=== PATIENT | female | born 1940 | race Caucasian/White ===

== ENCOUNTER 2016-11-13 10:30 | Inpatient (IN) | payer OTHER ==
--- NOTE | 2016-11-13 10:40 | PDOC ---
History of Present Illness - General Chief Complaint: Weakness Stated Complaint: WEAKNESS Time Seen by Provider: 11/13/16 10:37 History Source: Patient Exam Limitations: No Limitations - History of Present Illness Initial Comments: 11/13/16 10:57 CHIEF COMPLAINT: 76-year-old female complains of feeling generally weak since Monday HISTORY OF PRESENT ILLNESS: This is a 76-year-old woman with a history of hypertension, CABG, sarcoid, rheumatoid arthritis, and lymphoma. She is followed by Dr. Dallas as well as multiple specialists at [facility]. Patient was in her usual state of health, living alone at home, doing fine until Monday. She states she feels generally weak. She has no focal weakness. She states she can barely get up from the bed to the bathroom. She had one episode where she wet herself. She denies fever, cough, dysuria, or URI symptoms. She tried to get up this morning and she lost her balance coming down the stairs, hitting her head on the railing. There was no loss of consciousness. She denies headache. She denies chest pain. REVIEW OF SYSTEMS: GENERAL/CONSTITUTIONAL: No fever or chills. Positive generalized weakness. Positive poor by mouth intake for 3 days. HEAD, EYES, EARS, NOSE AND THROAT: No change in vision. No ear pain or discharge. No sore throat. CARDIOVASCULAR: No chest pain or shortness of breath. RESPIRATORY: No cough, wheezing, or hemoptysis. GASTROINTESTINAL: No nausea, vomiting, diarrhea or constipation. No rectal bleeding. GENITOURINARY: No dysuria, frequency, or change in urination. Positive loss of urine when she was unable to get to the bathroom. MUSCULOSKELETAL: No acute joint or muscle swelling or pain. No neck or back pain. SKIN AND BREASTS: No rash or easy bruising. NEUROLOGIC: No headache, vertigo, loss of consciousness, or loss of sensation. Positive head on the railing today. PSYCHIATRIC: No depression or anxiety. ENDOCRINE: Positive increased thirst. No abnormal weight change. HEMATOLOGIC/LYMPHATIC: No anemia, easy bleeding, or history of blood clots. ALLERGIC/IMMUNOLOGIC: No hives or skin allergy. No latex allergy. Past History - Past Medical History Allergies/Adverse Reactions: Allergies Allergy/AdvReac Type Severity Reaction Status Date / Time morphine Allergy Severe hives Verified 11/13/16 10:37 codeine [Codeine] Allergy Mild Verified 11/13/16 10:37 oxycodone HCl [From Percocet] Allergy Mild Vasovagal Verified 11/13/16 10:37 Reaction Home Medications: Ambulatory Orders Aspirin [Aspirin EC] 81 mg PO DAILY 04/22/14 Nifedipine ER [Procardia Xl -] 90 mg PO DAILY 08/01/15 Colchicine [Colcrys] 0.6 mg PO DAILY 08/29/16 Doxazosin Mesylate [Cardura -] 2 mg PO DAILY 08/29/16 Irbesartan 300 mg PO DAILY 08/29/16 Rosuvastatin Calcium [Crestor] 40 mg PO DAILY 08/29/16 Cancer: Yes (colon resection 2001) Cardiac Disorders: Yes (2 stents) GI Disorders: Yes (colon cancer) HTN: Yes Hypercholesterolemia: Yes Liver Disease: Yes (HEPATITIS AFTER BLOOD TRANSFUSION 1971) Thyroid Disease: Yes (PARATHYROID SURGERY 2012) - Surgical History Abdominal Surgery: Yes (GALLBLADDER, COLON CA) Cardiac Surgery: Yes (CABG) Cholecystectomy: Yes Lung Surgery: Yes (LUNG NODULE REMOVAL for sarcoidosis) - Immunization History Immunization Up to Date: Yes - Psycho/Social/Smoking Cessation Hx Anxiety: No Suicidal Ideation: No Smoking Status: No Smoking History: Never smoked Number of Cigarettes Smoked Daily: 0 Hx Alcohol Use: No Drug/Substance Use Hx: No Substance Use Type: None *Physical Exam - Physical Exam Comments: 11/13/16 11:01 GENERAL: The patient is awake, alert, and fully oriented, in no acute distress. She appears generally weak. She has difficulty sitting up in the stretcher, requires assistance to sit up. HEAD: Normal with no signs of trauma. EYES: Pupils equal, round and reactive to light, extraocular movements intact, sclera anicteric, conjunctiva clear. ENT: Ears normal, nares patent, oropharynx clear without exudates. Moist mucous membranes. NECK: Normal range of motion, supple without lymphadenopathy, JVD, or masses. No supraclavicular adenopathy. LUNGS: Breath sounds equal, clear to auscultation bilaterally. No wheezes, and no crackles. HEART: Regular rate and rhythm, normal S1 and S2 without murmur, rub or gallop. ABDOMEN: Soft, nontender, normoactive bowel sounds. No guarding, no rebound. No masses. EXTREMITIES: Normal range of motion, no edema. No clubbing or cyanosis. No cords, erythema, or tenderness. NEUROLOGICAL: Cranial nerves II through XII grossly intact. Normal speech. Too weak to stand up. No focal weakness. Sensation intact. PSYCH: Normal mood, normal affect. SKIN: Warm, Dry, slightly poor turgor, no rashes or lesions noted. Heart Score/ECG Review - ECG Intrepretation Comment:: 11/13/16 11:03 ED Treatment Course - LABORATORY CBC & Chemistry Diagram: 11/13/16 11:00 11/13/16 11:00 Medical Decision Making - Medical Decision Making 11/13/16 11:04 76-year-old female with history of coronary heart disease, lymphoma, and rheumatoid arthritis presents with nonspecific weakness for 3 days without symptoms of infection. Examination shows no focal findings other than mildly poor skin turgor. Patient will have workup for infectious or metabolic causes. She will get IV fluids. EKG and cardiac enzymes to be assessed as well as part of evaluation for generalized weakness, although there is no chest pain or shortness of breath. Further plans pending initial workup. Patient will likely need to be admitted given her generalized weakness, inability to care for herself, and the fact that she lives alone. 11/13/16 12:49 Laboratory Results - last 24 hr 11/13/16 11/13/16 11/13/16 11:00 11:00 11:00 WBC 3.8 L D RBC 4.81 Hgb 13.4 Hct 40.1 MCV 83.4 MCHC 33.3 RDW 13.1 Plt Count 134 D MPV 11.4 H D Neutrophils % 71.7 Lymphocytes % 14.5 D Monocytes % 13.2 H Eosinophils % 0.4 D Basophils % 0.2 INR 1.06 Sodium 137 Potassium 4.1 Chloride 104 Carbon Dioxide 20 L Anion Gap 13 BUN 35 H D Creatinine 1.7 H D Creat Clearance w eGFR 29.14 Random Glucose 98 Calcium 9.4 Magnesium 2.1 Total Bilirubin 0.5 AST 61 H D ALT 62 H D Alkaline Phosphatase 143 H D Creatine Kinase CK-MB (CK-2) Troponin I Total Protein 7.0 Albumin 4.1 Urine Color Urine Appearance Urine pH Ur Specific Tippo Urine Protein Urine Glucose (UA) Urine Ketones Urine Blood Urine Nitrite Urine Bilirubin Urine Urobilinogen Ur Leukocyte Esterase Urine RBC Urine WBC Ur Epithelial Cells Amorphous Urates Urine Bacteria 11/13/16 11/13/16 11/13/16 11:00 11:00 11:20 WBC RBC Hgb Hct MCV MCHC RDW Plt Count MPV Neutrophils % Lymphocytes % Monocytes % Eosinophils % Basophils % INR Sodium Potassium Chloride Carbon Dioxide Anion Gap BUN Creatinine Creat Clearance w eGFR Random Glucose Calcium Magnesium Total Bilirubin AST ALT Alkaline Phosphatase Creatine Kinase 261 H CK-MB (CK-2) 1.6 Troponin I Cancelled 0.03 Total Protein Albumin Urine Color Yellow Urine Appearance Clear Urine pH 5.0 Ur Specific Tippo 1.025 Urine Protein 3+ H D Urine Glucose (UA) Negative Urine Ketones Trace Urine Blood Negative Urine Nitrite Negative Urine Bilirubin 1+ H Urine Urobilinogen 0.2 e.u/dl Ur Leukocyte Esterase Negative Urine RBC 0-2 Urine WBC 2-4 Ur Epithelial Cells Few Amorphous Urates Few Urine Bacteria Few Labs all reviewed. CBC is notable for mild low white blood cell count. Hemoglobin and platelets are normal. Chemistries notable for elevated BUN and creatinine. Patient states she has a history of one kidney being somewhat atrophic. However, the concern is acute dehydration with acute kidney injury. Patient will require admission for IV hydration and repeat serial renal function assessment. Urinalysis is notable for 3+ protein. No infection. Patient will be admitted for rehydration and serial assessments of her renal function. Hospitalist service aware. *DC/Admit/Observation/Transfer Diagnosis at time of Disposition: Dehydration, FRANCO (acute kidney injury) - Discharge Dispostion Condition at time of disposition: Stable Admit: Yes Decision to Admit order Date/Time: 11/13/16 12:03 Patient with generalized weakness, no specific focal symptoms. Labs are notable for dehydration, acute kidney injury, patient will need admission for treatment. - Referrals Referrals: Shakir Dallas MD [Primary Care Provider] -
[2016-11-13] MEDS ORDERED: SODIUM CHLORIDE 1,000 ML IV STA (10:50)
[2016-11-13 11:03] VITALS: BMI 25.7
[2016-11-13 11:21] LABS: BASOPHIL 0.2 % (0-2.0); EOSINOPHIL 0.4 % (0-4.5); MCH 27.8 pg (25.7-33.7); MCHC 33.3 g/dl (32.0-36.0); MEAN CELL VOLUME 83.4 fl (80-96); MEAN PLT VOLUME 11.4 fl (7.5-11.1); NEUTROPHILS 71.7 % (42.8-82.8); PLATELET COUNT 134 K/MM3 (134-434); RDW 13.1 % (11.6-15.6); WHITE BLOOD COUNT 3.8 K/mm3 (4.0-10.0)
[2016-11-13 11:23] LABS: URINE APPEARANCE Clear; URINE BILIRUBIN 1+ (NEGATIVE); URINE BLOOD Negative (NEGATIVE); URINE COLOR YELLOW; URINE GLUCOSE (UA) Negative (NEGATIVE); URINE KETONE Trace (NEGATIVE); URINE LEUK ESTERASE Negative (NEGATIVE); URINE NITRITE Negative (NEGATIVE); URINE PROTEIN 3+ (NEGATIVE); URINE UROBILINOGEN 0.2 E.U/dl (0.2-1.0)
[2016-11-13 11:30] LABS: INR 1.06 (0.82-1.09); PROTHROMBIN TIME (PATIENT) 11.5 SEC (10.2-13.0)
[2016-11-13 11:36] LABS: URINE BACTERIA FEW /hpf (NEGATIVE); URINE RBC 0-2 /hpf (0-3)
[2016-11-13 11:40] LABS: ALBUMIN 4.1 g/dl (3.5-5.0); BILIRUBIN,TOTAL 0.5 mg/dl (0.2-1.0); CALCIUM 9.4 mg/dl (8.4-10.2); CREATININE 1.7 mg/dl (0.6-1.3); MAGNESIUM 2.1 mg/dL (1.8-2.4)
[2016-11-13 11:50] LABS: TROPONIN I (DFP) 0.03 ng/ml (0.03-0.50)
[2016-11-13] MEDS ORDERED: SODIUM CHLORIDE 1,000 ML IV ONE (12:39)
[2016-11-13 12:40] LABS: CK MB 1.6 ng/ml (0.3-4.0)
[2016-11-13] MEDS ORDERED: SODIUM CHLORIDE 1,000 ML IV SCH (14:45)
--- NOTE | 2016-11-13 14:45 | HP ---
CHIEF COMPLAINT: Weakness, "I feel and hit my head" PCP: Dr. Dallas HISTORY OF PRESENT ILLNESS: This is a 76 year old female with PMHx of lymphoma, colon ca s/p resection, sarcoidosis, hep B, OA, abdominal aneurysm, heart disease(bypass sx), htn, hlp, CKD, fatty liver disease, gout who presented to the ED with weakness and lightheadedness since Saturday 11/11. The patient reports she became increasingly more dizzy today and when she went to walk down her stairs she fell and hit her head. She denies any loss of consciousness, but reports she was so dizzy that when she tried to get up she felt like she would "pass out". She denies any headache, chest pain, palpitations, shortness of breath, urinary symptoms, syncope, nausea, vomiting, diarrhea. She is followed by Dr. Bennett (nephrology) and Dr. Allison Reeves (cardiology) at [facility]. She is scheduled for an outpatient ECHO next week ER course was notable for: (1) Head CT negative for acute intracranial process (2) Chest X-ray with no acute pathology (3) Cr 1.7 Recent Travel: No Social History: Smoking: No, quit 17 years ago Alcohol: No Drugs: No Allergies morphine Allergy (Severe, Verified 11/13/16 10:37) hives codeine [Codeine] Allergy (Mild, Verified 11/13/16 10:37) oxycodone HCl [From Percocet] Allergy (Mild, Verified 11/13/16 10:37) Vasovagal Reaction HOME MEDICATIONS: Home Medications Medication Instructions Recorded Aspirin [Aspirin EC] 81 mg PO DAILY 04/22/14 Nifedipine ER [Procardia Xl -] 90 mg PO DAILY 08/01/15 Colchicine [Colcrys] 0.6 mg PO DAILY 08/29/16 Doxazosin Mesylate [Cardura -] 2 mg PO DAILY 08/29/16 Irbesartan 300 mg PO DAILY 08/29/16 Rosuvastatin Calcium [Crestor] 40 mg PO DAILY 08/29/16 REVIEW OF SYSTEMS CONSTITUTIONAL: Generalized weakness since Saturday 11/11. Absent: fever, chills, diaphoresis, malaise, loss of appetite, weight change HEENT: Absent: rhinorrhea, nasal congestion, throat pain, throat swelling, difficulty swallowing, mouth swelling, ear pain, eye pain, visual changes CARDIOVASCULAR: Lightheadedness since 2/3, s/p fall today while hitting head 2/ 2 lightheadedness. Absent: chest pain, syncope, palpitations, irregular heart rate, peripheral edema RESPIRATORY: Cough x1 week. Absent: shortness of breath, dyspnea with exertion, orthopnea, wheezing, stridor, hemoptysis GASTROINTESTINAL:Absent: abdominal pain, abdominal distension, nausea, vomiting , diarrhea, constipation, melena, hematochezia GENITOURINARY: Absent: dysuria, frequency, urgency, hesitancy, hematuria, flank pain, genital pain MUSCULOSKELETAL: Absent: myalgia, arthralgia, joint swelling, back pain, neck pain SKIN: Absent: rash, itching, pallor HEMATOLOGIC/IMMUNOLOGIC: Absent: easy bleeding, easy bruising, lymphadenopathy, frequent infections ENDOCRINE:Absent: unexplained weight gain, unexplained weight loss, heat intolerance, cold intolerance NEUROLOGIC: Absent: headache, focal weakness or paresthesias, seizure, mental status changes, bladder or bowel incontinence PSYCHIATRIC: Absent: anxiety, depression, suicidal or homicidal ideation, hallucinations. PHYSICAL EXAMINATION GENERAL: Awake, alert, and fully oriented, in no acute distress. HEAD: Normal with no signs of trauma. EYES: Pupils equal, round and reactive to light, extraocular movements intact, sclera anicteric, conjunctiva clear. No lid lag. EARS, NOSE, THROAT: Ears normal, nares patent, oropharynx clear without exudates. Moist mucous membranes. NECK: Normal range of motion, supple without lymphadenopathy, JVD, or masses. LUNGS: Breath sounds equal, clear to auscultation bilaterally. No wheezes, and no crackles. No accessory muscle use. HEART: Regular rate and rhythm, normal S1 and S2, +murmur ABDOMEN: Soft, nontender, not distended, normoactive bowel sounds, no guarding, no rebound, no masses. No hepatomegaly or splenomegaly. MUSCULOSKELETAL: Normal range of motion at all joints. No bony deformities or tenderness. No CVA tenderness. UPPER EXTREMITIES: 2+ pulses, warm, well-perfused. No cyanosis. No clubbing. Cap refill <2 seconds. No peripheral edema. LOWER EXTREMITIES: 2+ pulses, warm, well-perfused. No calf tenderness. No peripheral edema. NEUROLOGICAL: Cranial nerves II-XII intact. Normal speech. Normal gait. PSYCHIATRIC: Cooperative. Good eye contact. Appropriate mood and affect. SKIN: Warm, dry, normal turgor, no rashes or lesions noted. CBCD WBC 3.8 K/mm3 (4.0-10.0) L D 11/13/16 11:00 RBC 4.81 M/mm3 (3.60-5.2) 11/13/16 11:00 Hgb 13.4 GM/dl (10.7-15.3) 11/13/16 11:00 Hct 40.1 % (32.4-45.2) 11/13/16 11:00 MCV 83.4 fl (80-96) 11/13/16 11:00 MCHC 33.3 g/dl (32.0-36.0) 11/13/16 11:00 RDW 13.1 % (11.6-15.6) 11/13/16 11:00 Plt Count 134 K/MM3 (134-434) D 11/13/16 11:00 MPV 11.4 fl (7.5-11.1) H D 11/13/16 11:00 CMP Sodium 137 mmol/L (136-145) 11/13/16 11:00 Potassium 4.1 mmol/L (3.5-5.1) 11/13/16 11:00 Chloride 104 mmol/L (98-107) 11/13/16 11:00 Carbon Dioxide 20 mmol/L (22-28) L 11/13/16 11:00 Anion Gap 13 (8-16) 11/13/16 11:00 BUN 35 mg/dl (7-18) H D 11/13/16 11:00 Creatinine 1.7 mg/dl (0.6-1.3) H D 11/13/16 11:00 Creat Clearance w eGFR 29.14 (>60) 11/13/16 11:00 Random Glucose 98 mg/dl (74-106) 11/13/16 11:00 Calcium 9.4 mg/dl (8.4-10.2) 11/13/16 11:00 Total Bilirubin 0.5 mg/dl (0.2-1.0) 11/13/16 11:00 AST 61 U/L (10-42) H D 11/13/16 11:00 ALT 62 U/L (10-40) H D 11/13/16 11:00 Alkaline Phosphatase 143 U/L (32-92) H D 11/13/16 11:00 Total Protein 7.0 g/dl (6.4-8.3) 11/13/16 11:00 Albumin 4.1 g/dl (3.5-5.0) 11/13/16 11:00 CARDIAC ENZYMES Creatine Kinase 261 IU/L (26-140) H 11/13/16 11:00 Troponin I 0.03 ng/ml (0.03-0.50) 11/13/16 11:00 Assessment: This is a 76 year old female with PMHx of lymphoma, colon ca s/p resection, sarcoidosis, hep B, OA, abdominal aneurysm, heart disease(bypass sx) , htn, hlp, CKD, fatty liver disease, gout who presented to the ED with weakness and lightheadedness since Saturday 11/11. Plan: 1) Cardiology: Lightheadedness, s/p fall while hitting head today - Head CT with no acute pathology, patient on ASA at home, will repeat head CT 12 hours after first - R/o ACS, trop x1 negative - Continuous cardiac monitoring - F/u ECHO HTN - Continue Nifedipine - Hold ARB 2/2 FRANCO (baseline Cr unknown) HLD - Continue Crestor 2) : RFANCO on CKD? - Patient reports database modeler is Dr. Bennett at [facility] (has appointment to go tomorrow) - Baseline Cr unknown, she reports one of her kidneys is not working - Patient appears dry, continue IVF and recheck Cr in AM 3) GI: Elevated AST/ALT, alk phos, hx of hep B, fatty liver disease - Trend liver enzymes, if trends up, consider hepatitis panel and liver ultrasound 4) MSK: Gout - Will hold colchicine given renal and mild hepatic impairment 5) Oncology: Lymphoma, colon cancer - Stable 6) F/E/N: - Monitor electrolytes - Sodium controlled diet 7) Prophylaxis: - Hold all chemical anticoagulation until second head CT results - SCDs bilaterally 8) Dispo: - Requires continued inpatient care CODE STATUS: FULL CODE Visit type - Emergency Visit Emergency Visit: Yes ED Registration Date: 11/13/16 Care time: The patient presented to the Emergency Department on the above date and was hospitalized for further evaluation of their emergent condition. - New Patient This patient is new to me today: Yes Date on this admission: 11/13/16 - Critical Care Critical Care patient: No
[2016-11-13 17:41] LABS: CPK(DFH) 257 IU/L (26-140)
[2016-11-13 17:53] LABS: TROPONIN I (DFP) < 0.03 ng/ml (0.03-0.50)
[2016-11-13 18:03] LABS: CK MB 2.5 ng/ml (0.3-4.0)
[2016-11-13] MEDS ORDERED: amLODIPine BESYLATE 10 MG TABLET (FP) PO ONE (21:21)
--- NOTE | 2016-11-13 23:44 | EKG ---
Test Reason : Blood Pressure : / mmHG Vent. Rate : 052 BPM Atrial Rate : 052 BPM P-R Int : 158 ms QRS Dur : 078 ms QT Int : 492 ms P-R-T Axes : -07 006 020 degrees QTc Int : 457 ms SINUS BRADYCARDIA LEFT VENTRICULAR HYPERTROPHY WITH REPOLARIZATION ABNORMALITY T-WAVE INVERSION IN ANTERIOR LEADS ABNORMAL ECG WHEN COMPARED WITH ECG OF 30-DEC-2001 08:58, NONSPECIFIC T WAVE ABNORMALITY, IMPROVED IN INFERIOR LEADS T WAVE INVERSION LESS EVIDENT IN ANTEROLATERAL LEADS Confirmed by REGINA STANFORD, VANNA (2016) on 11/13/2016 11:43:56 PM Referred By: EAGLE ASHER Confirmed By:VANNA TAPIA MD
[2016-11-13 23:51] LABS: CK MB 3.7 ng/ml (0.3-4.0); TROPONIN I (DFP) 0.03 ng/ml (0.03-0.50)
[2016-11-14] MEDS ORDERED: DOXAZOSIN MESYLATE 2 MG TABLET (FP) PO SCH (10:00)
[2016-11-14] MEDS ORDERED: NIFEdipine E.R. 90 MG TABLET (FP) PO SCH (10:00)
[2016-11-14] MEDS ORDERED: ROSUVASTATIN CA 40 MG TABLET PO SCH (10:00)
[2016-11-14] MEDS ORDERED: COLCHICINE 0.6 MG TABLET (FP) PO SCH (10:00)
[2016-11-14] MEDS ORDERED: ASPIRIN COATED 81 MG TABLET.EC PO SCH (10:00)
[2016-11-14 10:07] LABS: MCH 28.2 pg (25.7-33.7); MCHC 33.5 g/dl (32.0-36.0); MEAN CELL VOLUME 84.1 fl (80-96); MEAN PLT VOLUME 11.1 fl (7.5-11.1); PLATELET COUNT 107 K/MM3 (134-434); RDW 12.9 % (11.6-15.6); WHITE BLOOD COUNT 2.8 K/mm3 (4.0-10.0)
[2016-11-14 10:13] LABS: ALBUMIN 3.5 g/dl (3.5-5.0); BILIRUBIN,TOTAL 0.6 mg/dl (0.2-1.0); CALCIUM 8.7 mg/dl (8.4-10.2); TOT PROT 5.8 g/dl (6.4-8.3)
--- NOTE | 2016-11-14 13:33 | DS ---
Physical Exam: SUBJECTIVE: Patient seen and examinedpatient reports feeling well denies any chest pain or shortness of breath once to go home OBJECTIVE: patient is a 76 year old female with PMHx of lymphoma, colon ca s/p resection, sarcoidosis, hep B, OA, abdominal aneurysm, heart disease(bypass sx) , htn, hlp, CKD, fatty liver disease, gout who presented to the ED with weakness and lightheadedness since Saturday 11/11. The patient reports she became increasingly more dizzy today and when she went to walk down her stairs she fell and hit her head. She denies any loss of consciousness, but reports she was so dizzy that when she tried to get up she felt like she would "pass out". She denies any headache, chest pain, palpitations, shortness of breath, urinary symptoms, syncope, nausea, vomiting, diarrhea. She is followed by Dr. Bennett (nephrology) and Dr. Allison Reeves (cardiology) at [facility]. She is scheduled for an outpatient ECHO next week ER course was notable for: (1) Head CT negative for acute intracranial process (2) Chest X-ray with no acute pathology (3) Cr 1.7 Vital Signs Period Temp Pulse Resp BP Sys/Haney Pulse Ox Last 24 Hr 98.0 F-99.2 F 61-87 16-20 153-196/47-58 96-100 PHYSICAL EXAM GENERAL: The patient is awake, alert, and fully oriented, in no acute distress. HEAD: Normal with no signs of trauma. EYES: PERRL, extraocular movements intact, sclera anicteric, conjunctiva clear. ENT: Ears normal, nares patent, oropharynx clear without exudates, moist mucous membranes. NECK: Trachea midline, full range of motion, supple. LUNGS: Breath sounds equal, clear to auscultation bilaterally, no wheezes, no crackles, no accessory muscle use. HEART: Regular rate and rhythm, S1, S2, 2/6 without murmur, rub or gallop. ABDOMEN: Soft, nontender, nondistended, normoactive bowel sounds, no guarding, no rebound, no hepatosplenomegaly, no masses. EXTREMITIES: 2+ pulses, warm, well-perfused, no edema. NEUROLOGICAL: Cranial nerves II through XII grossly intact. Normal speech, gait not observed. PSYCH: Normal mood, normal affect. SKIN: Warm, dry, normal turgor, no rashes or lesions noted. LABS Laboratory Results - last 24 hr 11/13/16 11/13/16 11/14/16 17:00 22:58 08:26 WBC 2.8 L RBC 4.11 Hgb 11.6 D Hct 34.6 MCV 84.1 MCHC 33.5 RDW 12.9 Plt Count 107 L D MPV 11.1 Sodium Potassium Chloride Carbon Dioxide Anion Gap BUN Creatinine Creat Clearance w eGFR Random Glucose Calcium Total Bilirubin AST ALT Alkaline Phosphatase Creatine Kinase 257 H 350 H D CK-MB (CK-2) 2.5 3.7 Troponin I < 0.03 L 0.03 Total Protein Albumin 11/14/16 08:26 WBC RBC Hgb Hct MCV MCHC RDW Plt Count MPV Sodium 139 Potassium 3.6 Chloride 107 Carbon Dioxide 22 Anion Gap 10 BUN 23 H D Creatinine 1.0 D Creat Clearance w eGFR 53.76 Random Glucose 93 Calcium 8.7 Total Bilirubin 0.6 AST 50 H ALT 53 H Alkaline Phosphatase 117 H Creatine Kinase CK-MB (CK-2) Troponin I Total Protein 5.8 L Albumin 3.5 imaging Echo (11/14/16): LVEF 65-70%, grade 1 diastolic dysfunction mild mild MR and mild TR Head CT with no acute pathology x2 HOSPITAL COURSE: patient was admitted for syncopal episodes in observation, troponin 3 WNL she was placed on 24-hour cardiac monitoring no dysrhythmias noted. Echocardiogram noted head CT negative. Nifedeine was held due to FRANCO, patient remained normotensive throughout hospitalization. Patient was noted to have acute on chronic kidney disease Patient reports sheet metal installer is Dr. Bennett at [facility] (has appointment to go tomorrow). creatinine did trend downward to 1.0 after gentle IV hydration liver enzymes noted to be elevated upon arrival LFTs did trend downward. Patient has a past medical history of hepatitis B and fatty liver disease. Colchine held due to mild renal and hepatic impairment. patient has a past medical history of lymphoma and colon cancer, remained stable at this time Date of Admission:11/13/16 Date of Discharge: 11/14/16 Minutes to complete discharge: 45 Discharge Summary Reason For Visit: DEHYDRATION-FRANCO Current Active Problems FRANCO (acute kidney injury) (Acute) Dehydration (Acute) Condition: Improved - Instructions Diet, Activity, Other Instructions: resume regular low sodium diet please keep follow-up appointment with your sheet metal installer at [facility] Please follow-up with your toolmaker helper at [facility] a copy of the echocardiogram is enclosed Return to the emergency department immediately with ANY new, persistent or worsening symptoms. You MUST call and follow up with your doctor tomorrow. Please make sure your doctor reviews the results of your hospital stay. Referrals: Shakir Dallas MD [Primary Care Provider] - Disposition: HOME - Home Medications Comprehensive Discharge Medication List: Ambulatory Orders Aspirin [Aspirin EC] 81 mg PO DAILY 04/22/14 Nifedipine ER [Procardia Xl -] 90 mg PO DAILY 08/01/15 Colchicine [Colcrys] 0.6 mg PO DAILY 08/29/16 Doxazosin Mesylate [Cardura -] 2 mg PO DAILY 08/29/16 Irbesartan 300 mg PO DAILY 08/29/16 Rosuvastatin Calcium [Crestor] 40 mg PO DAILY 08/29/16 This patient is new to me today: No Emergency Visit: Yes ED Registration Date: 11/13/16 Care time: The patient presented to the Emergency Department on the above date and was hospitalized for further evaluation of their emergent condition. Critical Care patient: No - Discharge Referral Referred to [facility] No
[2016-11-14 14:40] VITALS: BP 132/48; PULSE 68; TEMP 98.6
== END 2016-11-14 15:15 | disposition home or self-care (01) | DRG 684 ==
LOC: FER 10:30 → FM/S 14:13
PROVIDERS: ADMIT Internal Medicine; ATTEND Nurse Practitioner Family
DX: N17.9 Acute kidney failure, unspecified (principal); I10 Essential (primary) hypertension; M06.80 Other specified rheumatoid arthritis, unspecified site; D86.89 Sarcoidosis of other sites; E86.0 Dehydration; I71.4 Abdominal aortic aneurysm, without rupture; M10.9 Gout, unspecified; E78.5 Hyperlipidemia, unspecified; K76.0 Fatty (change of) liver, not elsewhere classified; I12.9 Hypertensive chronic kidney disease with stage 1 through stage 4 chronic kidney disease, or unspecified chronic kidney disease; N18.9 Chronic kidney disease, unspecified; Z85.038 Personal history of other malignant neoplasm of large intestine; Z85.72 Personal history of non-Hodgkin lymphomas; Z95.1 Presence of aortocoronary bypass graft; Z86.19 Personal history of other infectious and parasitic diseases
CPT/HCPCS: 36415; 70450-TC; 71010-TC; 80053; 81003; 81015; 82550; 82553; 83735; 84484; 85025; 85027; 85610; 93005; 93306-TC; 97116-GP; 97161-GP; 99285-25

== ENCOUNTER 2017-03-15 12:12 | Emergency (ER) | payer OTHER ==
[2017-03-15 12:29] VITALS: BP 164/61; PULSE 68; TEMP 97.8; BMI 25.7
[2017-03-15 13:09] LABS: EOSINOPHIL 2.4 % (0-4.5); MCH 29.4 pg (25.7-33.7); MCHC 33.9 g/dl (32.0-36.0); MEAN CELL VOLUME 86.7 fl (80-96); MEAN PLT VOLUME 10.7 fl (7.5-11.1); NEUTROPHILS 71.2 % (42.8-82.8); PLATELET COUNT 173 K/MM3 (134-434); RDW 12.7 % (11.6-15.6); WHITE BLOOD COUNT 4.7 K/mm3 (4.0-10.8)
--- NOTE | 2017-03-15 13:15 | PDOC ---
History of Present Illness - General Chief Complaint: Psychiatric Stated Complaint: anxiety,sob Time Seen by Provider: 03/15/17 12:16 - History of Present Illness Initial Comments: 03/15/17 13:32 Chief complaint: Fatigue History of present illness: Patient states that yesterday she felt excessively fatigued, was unable to do her usual exercise. She is concerned about her heart. Review of systems: No chest pain, shortness of breath, abdominal pain, nausea, vomiting, diarrhea, diaphoresis, lightheadedness or dizziness, visual or focal neurologic symptoms, unsteadiness of gait. 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 No residual from her stroke. Social history: Former smoker, no recent uses tobacco alcohol or nonprescription drugs. Lives alone, admits anxiety, cares for self, fully ambulatory Family history: Significant for coronary artery disease. Physical exam: Alert and oriented 3, well-developed well-nourished, no acute distress, cheerful and cooperative Afebrile, vital signs normal HEENT clear Neck supple without bruit mass or nodes Chest clear CV regular without murmur rub or gallop Abdomen benign Neurological intact Extremities no CCE Skin clear, no rash, adequate turgor and wet mucous membranes Impression: Nonspecific constitutional symptoms, rule out occult coronary ischemia or MN, possible anxiety Plan: EKG and enzymes, further evaluation depending on results. Past History - Past Medical History Allergies/Adverse Reactions: Allergies Allergy/AdvReac Type Severity Reaction Status Date / Time morphine Allergy Severe hives Verified 03/15/17 12:14 codeine [Codeine] Allergy Mild Verified 03/15/17 12:14 oxycodone HCl [From Percocet] Allergy Mild Vasovagal Verified 03/15/17 12:14 Reaction Home Medications: Ambulatory Orders Aspirin [Aspirin EC] 81 mg PO DAILY 04/22/14 Nifedipine ER [Procardia XL -] 90 mg PO DAILY 08/01/15 Colchicine [Colcrys] 0.6 mg PO DAILY 08/29/16 Doxazosin Mesylate [Cardura -] 2 mg PO DAILY 08/29/16 Irbesartan 300 mg PO DAILY tablet 12/06/16 Rosuvastatin [Crestor -] 40 mg PO DAILY tablet 12/06/16 Diazepam [Valium] 5 mg PO PRN PRN 03/15/17 Cancer: Yes (colon resection 2001) Cardiac Disorders: Yes (2 stents) GI Disorders: Yes (colon cancer) HTN: Yes Hypercholesterolemia: Yes Liver Disease: Yes (HEPATITIS AFTER BLOOD TRANSFUSION 1971) Thyroid Disease: Yes (PARATHYROID SURGERY 2012) - Surgical History Abdominal Surgery: Yes (GALLBLADDER, COLON CA) Cardiac Surgery: Yes (CABG) Cholecystectomy: Yes Lung Surgery: Yes (LUNG NODULE REMOVAL for sarcoidosis) - Immunization History Immunization Up to Date: Yes - Psycho/Social/Smoking Cessation Hx Anxiety: Yes Suicidal Ideation: No Smoking Status: No Smoking History: Never smoked Have you smoked in the past 12 months: No Number of Cigarettes Smoked Daily: 0 Information on smoking cessation initiated: No Hx Alcohol Use: No Drug/Substance Use Hx: No Substance Use Type: None *Physical Exam - Vital Signs Last Vital Signs Temp Pulse Resp BP Pulse Ox 97.8 F 68 20 164/61 100 03/15/17 12:13 03/15/17 12:13 03/15/17 12:13 03/15/17 12:13 03/15/17 12:13 ED Treatment Course - LABORATORY CBC & Chemistry Diagram: 03/15/17 12:47 03/15/17 12:47 Medical Decision Making - Medical Decision Making 03/15/17 16:33 EKG reviewed and shows normal sinus rhythm with T-wave inversions in lead 3 and V4 through V6. CK and troponin are negative. Remainder of labs without significant abnormalities Patient's shucker Dr. Reeves was contacted by phone. She has reviewed the old record and notes that similar EKG changes have occurred in the past, they are intermittent, and they have not signify any cardiac disease. In addition, the patient had a normal cardiac catheterization less than 2 years ago. She recommends discharge and follow-up in her office tomorrow at 3:30 PM. This seems reasonable, based on the patient's vague symptoms, her hemodynamic stability, and her lack of symptoms at. She states that she feels considerably better than yesterday, when she felt weak. Discharge with specific instructions that if symptoms worsen or she develops any cardiac symptoms, especially chest pain, shortness of breath, abdominal pain , nausea, diaphoresis, lightheadedness, dizziness, she should call 911 and return to the emergency room immediately. She understands and agrees and is discharged without pain or other discomfort, fully ambulatory and in no distress , to follow-up as directed. *DC/Admit/Observation/Transfer Diagnosis at time of Disposition: Weakness - Discharge Dispostion Disposition: HOME Condition at time of disposition: Stable Admit: No - Patient Instructions Additional Instructions: Your shucker recommends discharge and follow-up with her tomorrow. She has seen similar intermittent changes in her cardiogram in the past, and your recent cardiac catheterization was clear. This seems to indicate that it is probably not an urgent heart problem However, if he develop any further symptoms between now and your visit to your doctor tomorrow, especially related to the chest, and including chest pain, shortness of breath, nausea, perspiring, lightheadedness, dizziness, or increased weakness, he should call 911 immediately or go to the nearest emergency room. Otherwise see her doctor at 3:30 tomorrow Her to take all your medications as directed on schedule, especially your aspirin.
[2017-03-15 13:18] LABS: ALK PHOS 139 U/L (32-92); ANION GAP 8 (8-16); BILIRUBIN,TOTAL 0.4 mg/dl (0.2-1.0); CALCIUM 9.8 mg/dl (8.4-10.2); CO2 21 mmol/L (22-28); CPK(DFH) 134 IU/L (26-140); CREATININE 1.1 mg/dl (0.6-1.3); GLUCOSE,RANDOM 121 mg/dl (74-106); SGOT/AST 28 U/L (10-42); SGPT/ALT 32 U/L (10-40); TOT PROT 6.5 g/dl (6.4-8.3)
[2017-03-15] MEDS ORDERED: ASPIRIN 81 MG CHEWABLE TABLETS PO ONE (13:42)
[2017-03-15 14:05] LABS: TROPONIN I (DFP) < 0.03 ng/ml (0.03-0.50)
[2017-03-15] MEDS ORDERED: ASPIRIN 81 MG CHEWABLE TABLETS ONE (14:11)
--- NOTE | 2017-03-15 14:25 | EKG ---
Test Reason : Blood Pressure : / mmHG Vent. Rate : 061 BPM Atrial Rate : 061 BPM P-R Int : 158 ms QRS Dur : 080 ms QT Int : 434 ms P-R-T Axes : 064 021 -01 degrees QTc Int : 436 ms SINUS RHYTHM LEFT VENTRICULAR HYPERTROPHY NONSPECIFIC T WAVE ABNORMALITY ABNORMAL ECG WHEN COMPARED WITH ECG OF 13-NOV-2016 11:10, T wave abnormality now present in aVF T wave abnormalities now present in V4-6 Confirmed by PHILLY LÓPEZ MD ([id number]) on 03/15/2017 2:25:06 PM Referred By: ANGY SMITH Confirmed By:PHILLY LÓPEZ MD
== END 2017-03-15 15:42 | disposition home or self-care (01) ==
LOC: FER 12:12
DX: R53.1 Weakness (principal); E78.00 Pure hypercholesterolemia, unspecified; Z85.038 Personal history of other malignant neoplasm of large intestine; Z95.5 Presence of coronary angioplasty implant and graft; Z95.1 Presence of aortocoronary bypass graft
CPT/HCPCS: 36415; 80053; 82550; 84484; 85025; 93005; 99283-25

== ENCOUNTER 2018-03-10 15:50 | Emergency (ER) | payer OTHER ==
--- NOTE | 2018-03-10 16:05 | PDOC ---
History of Present Illness - General History Source: Patient Exam Limitations: No Limitations - History of Present Illness Initial Comments: 03/10/18 16:26 The patient is a 77 year old female, with a significant PMH of hypertension, hypercholesterolemia, hepatitis, thyroid disease, colon ca, cardiac stents, CABG , who presents to the emergency department with right elbow bruising. The patient reports that she noticed her right elbow bruising earlier today. The patient reports that she was concerned for a tick bite. The patient denies any known injury. She also denies any pain, numbness, tingling or weakness. The patient denies any fever, chills, nausea, vomit, diarrhea and constipation. She denies any chest pain, shortness of breath, headache, dizziness or urinary symptoms. The patient denies any other complaints. Allergies: Morphine, Codeine, oxycodone HCl Past surgical history: Gallbladder removal, colon ca resection, CABG, cholecystectomy, lung nodule removal Social history: None reported PCP: Dakota Rangel <Reagan Kimbrough - Last Filed: 03/10/18 16:26> <Yvette Clements - Last Filed: 03/11/18 07:45> - General Chief Complaint: Injury Stated Complaint: RIGHT ELBOW BRUISE Time Seen by Provider: 03/10/18 16:05 Past History <Reagan Kimbrough - Last Filed: 03/10/18 16:26> - Past Medical History Cancer: Yes (colon resection 2001) Cardiac Disorders: Yes (2 stents) GI Disorders: Yes (colon cancer) HTN: Yes Hypercholesterolemia: Yes Liver Disease: Yes (HEPATITIS AFTER BLOOD TRANSFUSION 1971) Thyroid Disease: Yes (PARATHYROID SURGERY 2012) - Surgical History Abdominal Surgery: Yes (GALLBLADDER, COLON CA) Cardiac Surgery: Yes (CABG) Cholecystectomy: Yes Lung Surgery: Yes (LUNG NODULE REMOVAL for sarcoidosis) - Immunization History Immunization Up to Date: Yes - Suicide/Smoking/Psychosocial Hx Smoking Status: No Smoking History: Never smoked Have you smoked in the past 12 months: No Number of Cigarettes Smoked Daily: 0 Hx Alcohol Use: No Drug/Substance Use Hx: No Substance Use Type: None <Yvette Clements - Last Filed: 03/11/18 07:45> - Past Medical History Allergies/Adverse Reactions: Allergies Allergy/AdvReac Type Severity Reaction Status Date / Time morphine Allergy Severe hives Verified 03/10/18 16:12 codeine [Codeine] Allergy Mild Verified 03/10/18 16:12 oxycodone HCl [From Percocet] Allergy Mild Vasovagal Verified 03/10/18 16:12 Reaction Home Medications: Ambulatory Orders Aspirin [Aspirin EC] 81 mg PO DAILY 04/22/14 Nifedipine ER [Procardia XL -] 90 mg PO DAILY 08/01/15 Colchicine [Colcrys] 0.6 mg PO DAILY 08/29/16 Doxazosin Mesylate [Cardura -] 2 mg PO HS 08/29/16 Irbesartan 300 mg PO DAILY tablet 12/06/16 Rosuvastatin [Crestor -] 40 mg PO HS tablet 12/06/16 Diazepam [Valium] 5 mg PO PRN PRN 03/15/17 Calcium Carbonate/Vitamin D3 [Calcium 600 + Vit D Tablet] 1 each PO BID Lutein 40 mg PO DAILY 03/10/18 Jackson-3 Acid Ethyl Esters [Lovaza -] 2,000 mg PO BID 03/10/18 Ubidecarenone [Co Q-10] 200 mg PO DAILY 03/10/18 Review of Systems - Review of Systems Able to Perform ROS?: Yes Comments:: 03/10/18 16:26 GENERAL/CONSTITUTIONAL: No fever or chills. No weakness. HEAD, EYES, EARS, NOSE AND THROAT: No change in vision. No ear pain or discharge. No sore throat. CARDIOVASCULAR: No chest pain or shortness of breath. RESPIRATORY: No cough, wheezing, or hemoptysis. GASTROINTESTINAL: No nausea, vomiting, diarrhea or constipation. GENITOURINARY: No dysuria, frequency, or change in urination. MUSCULOSKELETAL:No joint or muscle swelling or pain. No neck or back pain. SKIN:(+)right elbow bruising. No rash NEUROLOGIC: No headache, vertigo, loss of consciousness, or change in strength/ sensation. ENDOCRINE: No increased thirst. No abnormal weight change. HEMATOLOGIC/LYMPHATIC: No anemia, easy bleeding, or history of blood clots. ALLERGIC/IMMUNOLOGIC: No hives or skin allergy. <Reagan Kimbrough - Last Filed: 03/10/18 16:26> *Physical Exam - Vital Signs Last Vital Signs Temp Pulse Resp BP Pulse Ox 98.6 F 70 16 140/60 100 03/10/18 15:51 03/10/18 15:51 03/10/18 15:51 03/10/18 15:51 03/10/18 15:51 - Physical Exam Comments: 03/10/18 16:26 GENERAL: Awake, alert, and fully oriented, in no acute distress HEAD: No signs of trauma EYES: PERRLA, EOMI, sclera anicteric, conjunctiva clear ENT: Auricles normal inspection, hearing grossly normal, nares patent, oropharynx clear without exudates. Moist mucosa NECK: Normal ROM, supple, no lymphadenopathy, JVD, or masses LUNGS: Breath sounds equal, clear to auscultation bilaterally. No wheezes, and no crackles HEART: Regular rate and rhythm, normal S1 and S2, no murmurs, rubs or gallops ABDOMEN: Soft, nontender, normoactive bowel sounds. No guarding, no rebound. No masses EXTREMITIES: Normal range of motion, no edema. No clubbing or cyanosis. No cords, erythema, or tenderness NEUROLOGICAL: Cranial nerves II through XII grossly intact. Normal speech, normal gait SKIN: Warm, Dry, normal turgor, no rashes or lesions noted. <Reagan Kimbrough - Last Filed: 03/10/18 16:26> - Physical Exam Comments: 03/11/18 07:43 + healing ecchymosis to R elbow. No rashes. <Yvette Clements - Last Filed: 03/11/18 07:45> Medical Decision Making - Medical Decision Making 03/11/18 07:44 Pt presents to the ED with healing ecchymosis to her elbow that she is concerned may be indicative of lyme disease. There is no rash. I have explained to the patient that she has an ecchymosis and not a rash and that there is no indication of lyme disease. Baron has no pain and has full ROM of the elbow. Will discharge home. 03/11/18 07:44 <Yvette Clements - Last Filed: 03/11/18 07:45> *DC/Admit/Observation/Transfer - Attestations Scribe Attestion: 03/10/18 16:27 Documentation prepared by Reagan Kimbrough, acting as medical device sales representative for Yvette Clements MD. <Reagan Kimbrough - Last Filed: 03/10/18 16:26> - Discharge Dispostion Decision to Admit order: No <Yvette Clements - Last Filed: 03/11/18 07:45> Diagnosis at time of Disposition: Contusion, elbow Qualifiers: Encounter type: initial encounter Laterality: right Qualified Code(s): S50.01XA - Contusion of right elbow, initial encounter - Discharge Dispostion Disposition: HOME Condition at time of disposition: Good - Referrals Referrals: Christian Duncan MD [Primary Care Provider] - - Patient Instructions Printed Discharge Instructions: DI for Contusion Additional Instructions: return to the ED for severe pain, spreading redness or swelling other new or changing symptoms. Follow up with your doctor within one week. - Post Discharge Activity
[2018-03-10 16:06] VITALS: BP 140/60; PULSE 70; TEMP 98.6; BMI 25.7
== END 2018-03-10 16:31 | disposition home or self-care (01) ==
LOC: FER 15:50
DX: S50.01XA Contusion of right elbow, initial encounter (principal); I10 Essential (primary) hypertension; Z85.038 Personal history of other malignant neoplasm of large intestine; E78.00 Pure hypercholesterolemia, unspecified; E07.9 Disorder of thyroid, unspecified; Z95.0 Presence of cardiac pacemaker; Z95.1 Presence of aortocoronary bypass graft
CPT/HCPCS: 99281-25

== ENCOUNTER 2021-05-28 02:13 | Emergency (ER) | payer OTHER ==
[2021-05-28 02:24] VITALS: BMI 25.7
[2021-05-28] MEDS ORDERED: SODIUM CHLORIDE 1,000 ML IV STA (02:40)
[2021-05-28] MEDS ORDERED: ONDANSETRON 4 MG/2 ML VIAL IVPUSH ONE (02:40)
[2021-05-28] MEDS ORDERED: ONDANSETRON 4 MG/2 ML VIAL ONE (02:43)
[2021-05-28 03:41] LABS: EPI CELLS 5 /uL (0-25.1); HYALINE CASTS 0 /uL (0-3.1); URINE APPEARANCE CLEAR; URINE BACTERIA 30 /uL (0-1359); URINE BILIRUBIN NEGATIVE (NEGATIVE); URINE COLOR YELLOW; URINE GLUCOSE (UA) NEGATIVE (NEGATIVE); URINE KETONE NEGATIVE (NEGATIVE); URINE LEUK ESTERASE TRACE (NEGATIVE); URINE NITRITE NEGATIVE (NEGATIVE); URINE PROTEIN 3+ (NEGATIVE); URINE RBC 6 /uL (0-23.9); URINE UROBILINOGEN 0.2 mg/dL (0.2-1.0); URINE WBC 9 /uL (0-25.8)
[2021-05-28 03:46] LABS: BASO % 0.7 % (0-2.0); EOS % 1.5 % (0-4.5); HEMATOCRIT 36.7 % (32.4-45.2); HEMOGLOBIN 12.7 GM/dL (10.7-15.3); LYMPH % 7.6 % (8-40); MCH 28.8 pg (25.7-33.7); MCHC 34.4 g/dl (32.0-36.0); MEAN CELL VOLUME 83.5 fl (80-96); MEAN PLT VOLUME 9.4 fl (7.5-11.1); MONO % 4.4 % (3.8-10.2); NEUT % 85.8 % (42.8-82.8); PLATELET COUNT 155 10^3/uL (134-434); RDW 13.4 % (11.6-15.6); WHITE BLOOD COUNT 7.6 K/mm3 (4.0-10.0)
[2021-05-28 04:01] LABS: CHLORIDE 104 mmol/L (98-107); SODIUM 137 mmol/L (136-145)
[2021-05-28 04:03] LABS: CALCIUM 9.6 mg/dL (8.5-10.1)
[2021-05-28 04:04] LABS: ALBUMIN 3.9 g/dl (3.4-5.0); ANION GAP 10 MMOL/L (8-16); BLOOD UREA NITROGEN 36.7 mg/dL (7-18); CO2 24 mmol/L (21-32); GLUCOSE,RANDOM 145 mg/dL (74-106); LIPASE 235 U/L (73-393)
[2021-05-28 04:07] LABS: CREATININE 1.6 mg/dL (0.55-1.3); SGOT/AST 17 U/L (15-37); SGPT/ALT 23 U/L (13-61)
[2021-05-28 04:08] LABS: BILIRUBIN,TOTAL 0.4 mg/dL (0.2-1); TOT PROT 7.1 g/dl (6.4-8.2)
[2021-05-28 04:09] LABS: ALK PHOS 105 U/L (45-117)
[2021-05-28] MEDS ORDERED: DEXTROSE 5%-0.45% SALINE 1,000 ML IV SCH (05:00)
[2021-05-28] MEDS ORDERED: ACETAMINOPHEN 1000 MG/100 ML VIAL (NON FORMULARY) IVPB PRN (05:03)
[2021-05-28 05:09] VITALS: BP 173/6; PULSE 80; TEMP 98.2
[2021-05-28] MEDS ORDERED: ONDANSETRON 4 MG/2 ML VIAL IVPUSH PRN (06:00)
== END 2021-05-28 09:48 | disposition left against medical advice (07) ==
LOC: FER 02:13
PROC: 3E0333Z Introduction of Anti-inflammatory into Peripheral Vein, Percutaneous Approach (ICD-10-PCS; principal; 2021-05-28)
PROC: 3E033GC Introduction of Other Therapeutic Substance into Peripheral Vein, Percutaneous Approach (ICD-10-PCS; 2021-05-28)
PROC: 3E033GC Introduction of Other Therapeutic Substance into Peripheral Vein, Percutaneous Approach (ICD-10-PCS; 2021-05-28)
PROC: 3E0337Z Introduction of Electrolytic and Water Balance Substance into Peripheral Vein, Percutaneous Approach (ICD-10-PCS; 2021-05-28)
DX: K56.609 Unspecified intestinal obstruction, unspecified as to partial versus complete obstruction (principal); N17.9 Acute kidney failure, unspecified; R11.10 Vomiting, unspecified
CPT/HCPCS: 36415; 74176-TC; 80053; 81003; 82550; 83605; 83690; 84484; 85025; 87086; 93005; 99291; C9803; U0003; U0005

== ENCOUNTER 2022-01-09 10:17 | Emergency (ER) | payer OTHER ==
[2022-01-09 10:26] VITALS: BP 156/52; PULSE 98; TEMP 98.6; BMI 25.7
[2022-01-09] MEDS ORDERED: ALBUTEROL SO4 0.083% IH SOL 2.5 MG/3 ML VIAL.NEB. NEB ONE ×2 (10:40→10:42)
[2022-01-09] MEDS ORDERED: ACETAMINOPHEN 325 MG TABLET (FP) PO ONE (10:41)
[2022-01-09] MEDS ORDERED: ACETAMINOPHEN 325 MG TABLET (FP) ONE (10:43)
[2022-01-10 20:07] LABS: SARS-CoV-2 NAA Not Detected (Not Detected)
== END 2022-01-09 11:50 | disposition home or self-care (01) ==
LOC: FER 10:17
PROC: 3E0F7GC Introduction of Other Therapeutic Substance into Respiratory Tract, Via Natural or Artificial Opening (ICD-10-PCS; principal; 2022-01-09)
DX: R05.9 Cough, unspecified (principal)
CPT/HCPCS: 87804; 87807; 99283-25; C9803-CS; U0003; U0005

== ENCOUNTER 2022-09-11 14:44 | Emergency (ER) | payer OTHER ==
[2022-09-11 14:59] VITALS: BP 133/52; PULSE 69; RESP 18; TEMP 97.8; BMI 25.7
[2022-09-11] MEDS ORDERED: ALBUTEROL SO4 2.5/IPRATROPIUM 0.5 INH SOL 3 ML VIAL.NEB. NEB ONE ×2 (15:02→15:12)
[2022-09-11] MEDS ORDERED: DEXAMETHASONE SOD PHOSPHATE 10 MG/1 ML VIAL PO ONE (15:02)
[2022-09-11] MEDS ORDERED: DEXAMETHASONE 4 MG TABLET (FP) ONE (15:11)
== END 2022-09-11 16:55 | disposition home or self-care (01) ==
LOC: FER 14:44
PROC: 3E0F7GC Introduction of Other Therapeutic Substance into Respiratory Tract, Via Natural or Artificial Opening (ICD-10-PCS; principal; 2022-09-11)
DX: U07.1 COVID-19 (principal)
CPT/HCPCS: 0241U-QW; 71045-TC-FY; 99284-25; J1100

== ENCOUNTER 2023-03-14 12:42 | Emergency (ER) | payer OTHER ==
[2023-03-14 12:55] VITALS: BP 157/64; PULSE 71; RESP 16; TEMP 97.8; BMI 24.9
[2023-03-14] MEDS ORDERED: IBUPROFEN 600 MG TABLET (FP) PO ONE ×2 (13:21→13:23)
[2023-03-14] MEDS ORDERED: LIDOCAINE 5% TOPICAL PATCH TP ONE (13:21)
[2023-03-14] MEDS ORDERED: LIDOCAINE 5% TOPICAL PATCH ONE (13:23)
[2023-03-14] MEDS ORDERED: METHOCARBAMOL 500 MG TABLET PO ONE (14:21)
[2023-03-14] MEDS ORDERED: METHOCARBAMOL 500 MG TABLET ONE (14:24)
[2023-03-14] MEDS ORDERED: LIDOCAINE PATCH REMOVAL MC SCH (22:00)
== END 2023-03-14 14:47 | disposition home or self-care (01) ==
LOC: FER 12:42
DX: M79.18 Myalgia, other site (principal); M25.552 Pain in left hip; X50.0XXA Overexertion from strenuous movement or load, initial encounter; Y93.F2 Activity, caregiving, lifting; Y92.009 Unspecified place in unspecified non-institutional (private) residence as the place of occurrence of the external cause
CPT/HCPCS: 73502-TC-LT-FY; 99283-25

== ENCOUNTER 2023-03-28 12:11 | Observation (INO) | payer OTHER ==
[2023-03-28] MEDS ORDERED: SODIUM CHLORIDE 500 ML IV ONE (12:58)
[2023-03-28 13:06] VITALS: BMI 24.0
[2023-03-28] MEDS ORDERED: LIDOCAINE 5% TOPICAL PATCH TP ONE (13:30)
[2023-03-28] MEDS ORDERED: ACETAMINOPHEN 1000 MG/100 ML BAG IVPB ONE (13:30)
[2023-03-28] MEDS ORDERED: ACETAMINOPHEN INJECTION 100 ML IVPB ONE (13:31)
[2023-03-28 14:07] LABS: HEMATOCRIT 38.7 % (32.4-45.2); HEMOGLOBIN 12.9 G/dL (10.7-15.3); MCH 28.8 pg (25.7-33.7); MCHC 33.3 g/dl (32.0-36.0); MEAN CELL VOLUME 86.3 fl (80-96); MEAN PLT VOLUME 9.6 fl (7.5-11.1); PLATELET COUNT 194.7 10^3/uL (134-434); RBC 4.48 10^6/uL (3.60-5.2); RDW 15.2 % (11.6-15.6)
[2023-03-28 14:08] LABS: ALBUMIN 3.9 g/dl (3.4-5.0); BILIRUBIN,TOTAL 0.4 mg/dl (0.2-1); CALCIUM 9.8 mg/dl (8.5-10.1); CREATININE 1.4 mg/dl (0.6-1.3); POTASSIUM 4.3 mmol/L (3.5-5.1); SGOT/AST 15.4 U/L (15-37); SGPT/ALT 12.1 U/L (7-52); TOT PROT 6.1 g/dl (6.4-8.2)
[2023-03-28 14:28] LABS: PLATELET ESTIMATE ADEQUATE
[2023-03-28] MEDS ORDERED: ONDANSETRON 4 MG/2 ML VIAL IVPUSH PRN (18:15)
[2023-03-28] MEDS ORDERED: ACETAMINOPHEN 325 MG TABLET (FP) PO PRN (18:15)
[2023-03-28 20:17] LABS: EPITHELIAL CELLS FEW /hpf
[2023-03-28] MEDS ORDERED: LIDOCAINE PATCH REMOVAL MC SCH (22:00)
[2023-03-29 08:17] LABS: ALBUMIN 3.4 g/dl (3.4-5.0); BILIRUBIN,TOTAL 0.3 mg/dl (0.2-1); BLOOD UREA NITROGEN 30.9 mg/dl (7-18); CALCIUM 9.2 mg/dl (8.5-10.1); CREATININE 1.3 mg/dl (0.6-1.3); POTASSIUM 4.2 mmol/L (3.5-5.1); SGOT/AST 13.3 U/L (15-37); SGPT/ALT 9.6 U/L (7-52); TOT PROT 5.1 g/dl (6.4-8.2)
[2023-03-29] MEDS ORDERED: methylPREDNISolone 4 MG TABLET PO ONE ×2 (09:58→18:00)
[2023-03-29] MEDS: ASPIRIN COATED 81 MG TABLET.EC PO SCH (09:59)
[2023-03-29] MEDS: ENOXAPARIN NA (PORCINE) 40 MG/0.4 ML DISP.SYRIN SQ SCH (09:59)
[2023-03-29] MEDS: NIFEdipine E.R. 90 MG TABLET PO SCH (09:59)
[2023-03-29 10:38] LABS: BASO % 0.7 % (0-2.0); EOS % 2.2 % (0-4.5); HEMATOCRIT 32.6 % (32.4-45.2); LYMPH % 9.7 % (8-40); MCH 28.2 pg (25.7-33.7); MCHC 33.9 g/dl (32.0-36.0); MEAN CELL VOLUME 83.4 fl (80-96); MEAN PLT VOLUME 8.7 fl (7.5-11.1); MONO % 7.5 % (3.8-10.2); NEUT % 79.9 % (42.8-82.8); PLATELET COUNT 197 10^3/uL (134-434); RDW 14.2 % (11.6-15.6)
[2023-03-29] MEDS ORDERED: ROSUVASTATIN CA 40 MG TABLET PO SCH (22:00)
[2023-03-30 09:18] LABS: ALBUMIN 3.8 g/dl (3.4-5.0); BILIRUBIN,TOTAL 0.4 mg/dl (0.2-1); BLOOD UREA NITROGEN 34.2 mg/dl (7-18); CALCIUM 9.7 mg/dl (8.5-10.1); CREATININE 1.2 mg/dl (0.6-1.3); POTASSIUM 4.1 mmol/L (3.5-5.1); SGOT/AST 15.2 U/L (15-37); SGPT/ALT 15.1 U/L (7-52); TOT PROT 5.7 g/dl (6.4-8.2)
[2023-03-30 09:31] VITALS: RESP 18
[2023-03-30] MEDS: NIFEdipine E.R. 90 MG TABLET PO SCH (09:48)
[2023-03-30] MEDS: ASPIRIN COATED 81 MG TABLET.EC PO SCH (09:50)
[2023-03-30] MEDS: ENOXAPARIN NA (PORCINE) 40 MG/0.4 ML DISP.SYRIN SQ SCH (09:51)
[2023-03-30 11:25] LABS: BASO % 0.4 % (0-2.0); EOS % 0.3 % (0-4.5); HEMATOCRIT 34.3 % (32.4-45.2); HEMOGLOBIN 11.8 GM/dL (10.7-15.3); LYMPH % 6.9 % (8-40); MCH 28.5 pg (25.7-33.7); MCHC 34.3 g/dl (32.0-36.0); MEAN PLT VOLUME 8.8 fl (7.5-11.1); MONO % 6.3 % (3.8-10.2); NEUT % 86.1 % (42.8-82.8); PLATELET COUNT 242 10^3/uL (134-434); RBC 4.13 M/mm3 (3.60-5.2); RDW 14.2 % (11.6-15.6); WHITE BLOOD COUNT 6.6 K/mm3 (4.0-10.0)
[2023-03-30] MEDS ORDERED: methylPREDNISolone 2 MG TABLET PO ONE (11:30)
[2023-03-30] MEDS ORDERED: methylPREDNISolone 4 MG TABLET PO ONE (11:30)
[2023-03-30 14:25] VITALS: BP 183/56; PULSE 75; TEMP 97.3
== END 2023-03-30 16:40 | disposition home or self-care (01) ==
LOC: FER 12:11 → FM/S 14:53
PROVIDERS: ADMIT Student in an Organized Health Care Education/Training Program; ATTEND Student in an Organized Health Care Education/Training Program
PROC: 3E033NZ Introduction of Analgesics, Hypnotics, Sedatives into Peripheral Vein, Percutaneous Approach (ICD-10-PCS; principal; 2023-03-28)
PROC: 3E0337Z Introduction of Electrolytic and Water Balance Substance into Peripheral Vein, Percutaneous Approach (ICD-10-PCS; 2023-03-28)
DX: R55 Syncope and collapse (principal); M54.16 Radiculopathy, lumbar region; I10 Essential (primary) hypertension; E78.5 Hyperlipidemia, unspecified; Z85.038 Personal history of other malignant neoplasm of large intestine; Z86.19 Personal history of other infectious and parasitic diseases; Z88.5 Allergy status to narcotic agent; Z88.6 Allergy status to analgesic agent; Z95.5 Presence of coronary angioplasty implant and graft; Z95.1 Presence of aortocoronary bypass graft
CPT/HCPCS: 36415; 70450-TC; 71045-TC-FY; 72131-TC; 80053; 81003; 81015; 84484; 85025; 85027; 93005; 93306-TC; 93880-TC; 96361; 96374; 97116-GP; 97162-GP; 99285-25; G0378